=== PATIENT | male | born 1995 | race Caucasian/White ===

== ENCOUNTER 2017-03-21 14:42 | Emergency (ER) | payer OTHER ==
[~2017-03-21] VITALS: Ht 190.5 cm; Wt 84.1 kg
[2017-03-21 14:52] VITALS: BP 118/64
[2017-03-21] MEDS ORDERED: CHLO15MO2 PO (15:35)
--- NOTE | 2017-03-21 15:36 | PHYS DOC ---
Adult General Chief Complaint Chief Complaint: TONGUE SWELLING/INJURY HPI HPI Patient is a 21 year old male who presents with bite injury to the tongue. The patient states shortly prior to arrival he was playing basketball, another player jumped up with impact of his head to the patient's jaw. He bit his own tongue. Denies dental injury. Bleeding improved. No other injuries, no loss of consciousness. Previously healthy. Review of Systems Review of Systems Constitutional: Denies fever or chills Eyes: Denies change in visual acuity HENT: Denies nasal congestion or sore throat, reports tongue laceration. Respiratory: Denies cough or shortness of breath Cardiovascular: Denies chest pain GI: Denies abdominal pain, nausea, vomiting Musculoskeletal: Denies back pain or joint pain Integument: Denies rash Neurologic: Denies headache Physical Exam Physical Exam Constitutional: Well developed, well nourished, no acute distress, non-toxic appearance. HENT: Normocephalic, atraumatic, bilateral external ears normal, oropharynx moist, nose normal. right anterior tongue with 2 cm irregular laceration, not gaping open. dentition intact , no focal maxillary or mandibular tenderness. Eyes: conjunctiva normal, no discharge. Cardiovascular: no edema. Lungs & Thorax: no respiratory distress. Abdomen: nondistended. Skin: Warm, dry, no erythema, no rash. Extremities: No deformity Neurologic: Alert and oriented X 3, EKG EKG [] Radiology/Procedures Radiology/Procedures [] Course & Med Decision Making Course & Med Decision Making Pertinent Labs and Imaging studies reviewed. (See chart for details) The patient presents with tongue laceration. Well approximated, not gaping. Recommend supportive care with hydration, soft diet, use peridex mouthwash, tylenol or ibuprofen for pain, follow up as needed in oral surgery clinic. Come back for difficutly breathing or swallowing, or any otherwise worsening condition. Discharged home in stable condition. [] Dragon Disclaimer Dragon Disclaimer This chart was dictated in whole or in part using Voice Recognition software in a busy, high-work load, and often noisy Emergency Department environment. It may contain unintended and wholly unrecognized errors or omissions. Departure Departure: Impression: Primary Impression: Tongue laceration Disposition: 01 HOME, SELF-CARE Condition: STABLE Referrals: PCP,LORI (PCP) [facility] Patient Instructions: Tongue Laceration, [id number] Additional Instructions: You were seen in the emergency department today for bite laceration to the tongue. This will heal well without any specific treatment. Eat soft foods, avoid spicy, salty, crunchy foods. Take Tylenol or ibuprofen for pain. Use regular mouthwash or the prescription mouthwash. Follow-up as needed with oral surgery. Return for difficulty breathing or swallowing, any otherwise worsening condition. Scripts Chlorhexidine Gluconate (PERIDEX) 15 Ml Mouthwash 15 ML PO BID, #[id number] ML Prov: BUSTER CAMARA MD 03/21/17 BUSTER CAMARA MD Mar 21, 2017 15:36
== END 2017-03-21 15:52 | disposition home or self-care (01) ==
LOC: ER 14:42
DX: S01.512A Laceration without foreign body of oral cavity, initial encounter (principal); X58.XXXA Exposure to other specified factors, initial encounter; Y93.67 Activity, basketball; Y99.8 Other external cause status; Y92.89 Other specified places as the place of occurrence of the external cause
CPT/HCPCS: 99283